=== PATIENT | female | born 1955 | race Caucasian/White ===

== ENCOUNTER 2020-10-16 17:32 | Emergency (ER) | payer BC ==
[2020-10-16] MEDS ORDERED: Ketorolac 30 MG/ML SDV IM ONE (18:10)
--- NOTE | 2020-10-16 18:15 | EDM.PDOC ---
ED HPI GENERAL MEDICAL PROBLEM - General Chief Complaint: Upper Extremity Injury/Pain Stated Complaint: SHOULDER/ARM PAIN Time Seen by Provider: 10/16/20 18:06 Source of Information: Reports: Patient, RN Notes Reviewed History Limitations: Reports: No Limitations - History of Present Illness INITIAL COMMENTS - FREE TEXT/NARRATIVE: 65-year-old female presents emergency department today complaining of left arm pain neck pain, she states it started about 2 AM she denies any trauma no repetitive motion does have a history of diabetes states the pain has started to radiate down into her arm she took a baby aspirin without any relief no nausea vomiting shortness of breath or chest pain Left Shoulder Pain Score (Numeric/FACES): 7 - Related Data Allergies Allergy/AdvReac Type Severity Reaction Status Date / Time acetaminophen Allergy Other Verified 10/16/20 17:52 [From Darvocet-N] codeine Allergy Other Verified 10/16/20 17:52 nickel Allergy Other Verified 10/16/20 17:52 propoxyphene Allergy Other Verified 10/16/20 17:52 [From Darvocet-N] trandolapril [From Mavik] Allergy Other Verified 10/16/20 17:52 Home Meds: Home Meds Ketoconazole [Nizoral 2% Shampoo] 2 percent TOP ASDIRECTED 09/15/16 [History] Metoprolol Succinate [Toprol Xl] 100 mg PO BID 09/15/16 [History] Naproxen Sodium [Aleve] 220 mg PO ASDIRECTED PRN 09/15/16 [History] Valsartan/Hydrochlorothiazide [Valsartan-Hctz 160-12.5 mg Tab] 1 tab PO BID 09/15/16 [History] metFORMIN [Glucophage] 850 mg PO TID 09/15/16 [History] Insulin Glargine,Hum.Rec.Anlog [Lantus Solostar] 110 units SQ DAILY 10/16/20 [History] Past Medical History HEENT History: Reports: Hard of Hearing Cardiovascular History: Reports: Hypertension 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: Reports: Endometriosis, Musculoskeletal History: Reports: Arthritis, Other (See Below) Other Musculoskeletal History: left knee pain ,,, extra cervical ribs per pt Endocrine/Metabolic History: Reports: Diabetes, Type II, Obesity/BMI 30+ Immunologic History: Reports: Other (See Below) Other Immunologic History: llp Dermatologic History: Reports: Other (See Below) Other Dermatologic History: facial skin ca - Infectious Disease History Infectious Disease History: Reports: Measles, Mumps - Past Surgical History Head Surgeries/Procedures: Reports: None HEENT Surgical History: Reports: None Cardiovascular Surgical History: Reports: None GI Surgical History: Reports: Cholecystectomy Endocrine Surgical History: Reports: None Musculoskeletal Surgical History: Reports: None Oncologic Surgical History: Reports: None Dermatological Surgical History: Reports: None Social & Family History - Tobacco Use Tobacco Use Status *Q: Never Tobacco User Second Hand Smoke Exposure: No - Caffeine Use Caffeine Use: Reports: Soda, Tea - Recreational Drug Use Recreational Drug Use: No Review of Systems - Review of Systems Review Of Systems: See Below Respiratory: Reports: No Symptoms Cardiovascular: Reports: No Symptoms GI/Abdominal: Reports: No Symptoms Musculoskeletal: Reports: Neck Pain, Shoulder Pain ED EXAM, GENERAL - Physical Exam Exam: See Below Exam Limited By: No Limitations General Appearance: Alert, WD/WN, No Apparent Distress Neck: Normal Inspection, Supple, Non-Tender, Full Range of Motion Respiratory/Chest: No Respiratory Distress, Lungs Clear, Normal Breath Sounds, No Accessory Muscle Use, Chest Non-Tender Cardiovascular: Regular Rate, Rhythm, No Murmur Extremities: Normal Inspection, Normal Range of Motion, Non-Tender Course - Vital Signs Last Recorded V/S: Last Vital Signs Temp 97.3 F 10/16/20 17:59 Pulse 70 10/16/20 19:40 Resp 19 10/16/20 19:40 BP 165/66 H 10/16/20 19:40 Pulse Ox 99 10/16/20 19:40 - Orders/Labs/Meds Orders: Active Orders 24 hr Category Date Time Status Cardiac Monitoring [RC] .As Directed Care 10/16/20 18:11 Active Labs: Laboratory Tests 10/16/20 10/16/20 10/16/20 Range/Units 18:23 18:23 18:23 WBC 10.5 (4.5-11.0) K/uL RBC 5.26 (3.30-5.50) M/uL Hgb 13.7 (12.0-15.0) g/dL Hct 41.6 (36.0-48.0) % MCV 79 L (80-98) fL MCH 26 L (27-31) pg MCHC 33 (32-36) % Plt Count 266 (150-400) K/uL Neut % (Auto) 66 (36-66) % Lymph % (Auto) 25 (24-44) % [place] % (Auto) 6 (2-6) % Eos % (Auto) 3 (2-4) % Baso % (Auto) 0 (0-1) % D-Dimer, Quantitative 536.39 H (0.0-500.0) ng/mL Sodium 139 L (140-148) mmol/L Potassium 3.6 (3.6-5.2) mmol/L Chloride 102 (100-108) mmol/L Carbon Dioxide 25 (21-32) mmol/L Anion Gap 15.6 H (5.0-14.0) mmol/L BUN 20 H (7-18) mg/dL Creatinine 0.9 (0.6-1.0) mg/dL Est Cr Clr Drug Dosing 47.51 mL/min Estimated GFR (MDRD) > 60 (>60) Glucose 234 H (74-106) mg/dL Lactic Acid (0.4-2.0) mmol/L Calcium 9.1 (8.5-10.1) mg/dL Total Bilirubin 0.4 (0.2-1.0) mg/dL AST 12 L (15-37) U/L ALT 30 (12-78) U/L Alkaline Phosphatase 156 H (46-116) U/L Troponin I < 0.017 (0.000-0.056) ng/mL Total Protein 7.1 (6.4-8.2) g/dL Albumin 3.5 (3.4-5.0) g/dL Globulin 3.6 H (2.3-3.5) g/dL Albumin/Globulin Ratio 1.0 L (1.2-2.2) 12/16/20 Range/Units 18:23 WBC (4.5-11.0) K/uL RBC (3.30-5.50) M/uL Hgb (12.0-15.0) g/dL Hct (36.0-48.0) % MCV (80-98) fL MCH (27-31) pg MCHC (32-36) % Plt Count (150-400) K/uL Neut % (Auto) (36-66) % Lymph % (Auto) (24-44) % [place] % (Auto) (2-6) % Eos % (Auto) (2-4) % Baso % (Auto) (0-1) % D-Dimer, Quantitative (0.0-500.0) ng/mL Sodium (140-148) mmol/L Potassium (3.6-5.2) mmol/L Chloride (100-108) mmol/L Carbon Dioxide (21-32) mmol/L Anion Gap (5.0-14.0) mmol/L BUN (7-18) mg/dL Creatinine (0.6-1.0) mg/dL Est Cr Clr Drug Dosing mL/min Estimated GFR (MDRD) (>60) Glucose (74-106) mg/dL Lactic Acid 2.1 H (0.4-2.0) mmol/L Calcium (8.5-10.1) mg/dL Total Bilirubin (0.2-1.0) mg/dL AST (15-37) U/L ALT (12-78) U/L Alkaline Phosphatase (46-116) U/L Troponin I (0.000-0.056) ng/mL Total Protein (6.4-8.2) g/dL Albumin (3.4-5.0) g/dL Globulin (2.3-3.5) g/dL Albumin/Globulin Ratio (1.2-2.2) Meds: Medications Discontinued Medications Generic Name Dose Route Start Last Admin Trade Name Freq PRN Reason Stop Dose Admin Ketorolac Tromethamine 30 mg 10/16/20 18:10 10/16/20 18:15 Toradol IM 10/16/20 18:11 30 mg ONETIME ONE Administration Departure - Departure Time of Disposition: 19:42 Disposition: Home, Self-Care 01 Condition: Fair Clinical Impression: Shoulder pain Qualifiers: Chronicity: acute Laterality: left Qualified Code(s): M25.512 - Pain in left shoulder - Discharge Information Instructions: Shoulder Pain Referrals: Carl Mason Sr, MD [Primary Care Provider] - Forms: ED Department Discharge Additional Instructions: Continue to use Tylenol and Motrin as needed for pain control, please followup with your primary care provider in 3-5 days if not better, please call return to the emergency department with worsening of symptoms. Sepsis Event Note (ED) - Evaluation Sepsis Screening Result: No Definite Risk - Focused Exam Vital Signs: Vital Signs Temp Pulse Resp BP Pulse Ox 10/16/20 19:40 70 19 165/66 H 99 10/16/20 18:26 81 15 171/72 H 98 10/16/20 17:59 97.3 F 85 16 186/75 H 98 10/16/20 17:47 97.3 F 85 16 186/75 H 98 - My Orders Last 24 Hours: My Active Orders 10/16/20 18:11 Cardiac Monitoring [RC] .As Directed - Assessment/Plan Last 24 Hours: My Active Orders 10/16/20 18:11 Cardiac Monitoring [RC] .As Directed Plan: Assessment Acuity = acute Site and laterality = left arm pain Etiology = unknown suspicious for repetitive motion injury Manifestations = none Location of injury = Home Lab values = CBC unremarkable CMP unremarkable D-dimer slightly elevated 536 near the upper limit of normal lactic acid slightly elevated 2.1 troponin was negative Plan She had good relief with Toradol injection provided in the emergency department she is to continue to use Tylenol or Motrin as needed for pain control follow-up with primary care in the next 3 to 5 days for reevaluation if not better This note was dictated using [employer] voice recognition software please call with any questions on syntax or grammar.
[2020-10-16 19:40] VITALS: BP 165/66; PULSE 70
== END 2020-10-16 19:58 | disposition home or self-care (01) ==
LOC: JP.ED 17:32
DX: M25.512 Pain in left shoulder (principal); I10 Essential (primary) hypertension; E11.9 Type 2 diabetes mellitus without complications; E66.9 Obesity, unspecified; Z90.49 Acquired absence of other specified parts of digestive tract; Z88.5 Allergy status to narcotic agent; Z91.09 Other allergy status, other than to drugs and biological substances; Z79.4 Long term (current) use of insulin; Z79.899 Other long term (current) drug therapy; Z68.33 Body mass index [BMI] 33.0-33.9, adult
CPT/HCPCS: 36415; 80053; 83605; 84484; 85025; 85379; 96372; 99283; J1885

== ENCOUNTER 2022-07-29 05:34 | Emergency (ER) | payer BC ==
[2022-07-29] MEDS ORDERED: Sodium Chloride 0.9% 10 ML Syringe FLUSH PRN ×2 (05:46→06:17)
[2022-07-29] MEDS ORDERED: HYDROmorphone 0.5 MG/0.5 ML Syringe IVPUSH ONE ×2 (05:54→07:01)
[2022-07-29] MEDS ORDERED: Pantoprazole 40 MG Vial IVPUSH ONE (05:55)
[2022-07-29 06:15] LABS: ESTIMATED GFR 70 mL/min (>60); TROPONIN I HIGH SENSITIVITY 6.6 pg/mL (<=60.3)
[2022-07-29] MEDS ORDERED: Lactated Ringers 1,000 ML IV ONE ×2 (06:17→08:00)
[2022-07-29] MEDS ORDERED: Sodium Chloride 0.9% 50 ML IV STA (06:29)
[2022-07-29] MEDS ORDERED: Iopamidol 612 MG/ML 100 ML Bottle IV STA (06:29)
[2022-07-29] MEDS ORDERED: Dextrose 5%-Lactated Ringers 1,000 ML IV SCH (06:30)
[2022-07-29] MEDS: Potassium Chloride 20 MEQ in Premix Bag 1 BAG IV SCH ×2 (06:36→08:59)
[2022-07-29] MEDS: Lidocaine 1% PF 2 ML SDV IV SCH ×2 (06:37→06:57)
[2022-07-29] MEDS ORDERED: Magnesium Sulfate/Water 2 GM in Premix Bag 1 BAG IV ONE (06:37)
[2022-07-29] MEDS ORDERED: Potassium Chloride 20 MEQ Tab.ER PO ONE (08:49)
[2022-07-29 09:54] LABS: CORONAVIRUS COVID-19 NAA NEGATIVE (NEGATIVE)
[2022-07-29 10:28] VITALS: PULSE 73
[2022-07-29 12:37] VITALS: BP 144/54
== END 2022-07-29 12:25 | disposition home or self-care (01) ==
LOC: JP.ED 05:34
DX: R10.83 Colic (principal); E83.42 Hypomagnesemia; E87.6 Hypokalemia; E87.2 Acidosis; R41.0 Disorientation, unspecified; I10 Essential (primary) hypertension; E66.9 Obesity, unspecified; Z68.32 Body mass index [BMI] 32.0-32.9, adult; Z88.6 Allergy status to analgesic agent; Z88.5 Allergy status to narcotic agent; Z91.048 Other nonmedicinal substance allergy status; Z88.8 Allergy status to other drugs, medicaments and biological substances; Z79.899 Other long term (current) drug therapy; Z79.84 Long term (current) use of oral hypoglycemic drugs; Z90.49 Acquired absence of other specified parts of digestive tract; Z79.4 Long term (current) use of insulin; Z20.822 Contact with and (suspected) exposure to COVID-19
CPT/HCPCS: 0241U; 36415; 71045; 74177; 80053; 80305-QW; 80307; 81001; 82800; 82947; 83605; 83690; 83735; 84132; 84145; 84484; 85025; 86140; 93005; 93010; 96365; 96366; 96367; 96375; 96376; 99285; 99285-25; A9270-GY; C9113; J1170; J3475; J3480; J3490; J7120; J7121; Q9967